=== PATIENT | male | born 1995 | race Two or more races ===

== ENCOUNTER 2021-08-04 21:14 | Emergency (ER) | payer MEDICAID, OTHER ==
[~2021-08-04] VITALS: Ht 170.2 cm; Wt 77.1 kg
[2021-08-04 21:24] VITALS: BP 136/68
== END 2021-08-04 21:45 | disposition short-term general hospital (02) ==
LOC: EDBD 21:14 → ER 21:14
DX: R07.89 Other chest pain (principal); R10.9 Unspecified abdominal pain; V43.92XA Unspecified car occupant injured in collision with other type car in traffic accident, initial encounter; Y93.89 Activity, other specified; Y92.488 Other paved roadways as the place of occurrence of the external cause; Y99.8 Other external cause status